=== PATIENT | male | born 1985 | race Caucasian/White ===

== ENCOUNTER → 2024-05-20 06:19 | Day surgery (SDC) | payer OTHER, SELFPAY | LOC: GI 06:19 | PROVIDERS: ATTENDING PHYSICIAN Internal Medicine Gastroenterology; FAMILY PHYSICIAN Family Medicine | DX: R19.4 Change in bowel habit (principal); K52.9 Noninfective gastroenteritis and colitis, unspecified; Z53.8 Procedure and treatment not carried out for other reasons | CPT/HCPCS: 45378; G0378 ==

== ENCOUNTER 2024-06-13 06:22 | Day surgery (SDC) | payer OTHER, SELFPAY | END 2024-06-13 09:20 | disposition home or self-care (01) | LOC: GI 06:22 | PROVIDERS: ATTENDING PHYSICIAN Internal Medicine Gastroenterology; FAMILY PHYSICIAN Family Medicine | DX: R19.4 Change in bowel habit (principal); D12.0 Benign neoplasm of cecum | CPT/HCPCS: 45385; 45380; 88305 ==